=== PATIENT | female | born 1945 | race Hispanic/Latino ===

== ENCOUNTER 2020-08-04 10:00 | Outpatient (CLI) | payer MEDICARE | END 2020-08-04 10:01 | disposition home or self-care (01) | LOC: CSHULT 10:00 | PROVIDERS: ATTEND Physician Assistant Medical | DX: K74.60 Unspecified cirrhosis of liver (principal); R93.2 Abnormal findings on diagnostic imaging of liver and biliary tract | CPT/HCPCS: 76705 ==

== ENCOUNTER 2020-08-30 16:41 | Outpatient (CLI) | payer MEDICARE, MEDICAID | END 2020-08-30 16:42 | disposition home or self-care (01) | LOC: CSHWCC 16:41 | PROVIDERS: ATTEND Nurse Practitioner Family | DX: E11.621 Type 2 diabetes mellitus with foot ulcer (principal); L97.419 Non-pressure chronic ulcer of right heel and midfoot with unspecified severity; E03.9 Hypothyroidism, unspecified; E78.2 Mixed hyperlipidemia; I10 Essential (primary) hypertension; I70.203 Unspecified atherosclerosis of native arteries of extremities, bilateral legs; I87.2 Venous insufficiency (chronic) (peripheral); R60.0 Localized edema | CPT/HCPCS: 97139; G0463; 99213 ==

== ENCOUNTER 2021-07-27 08:52 | Outpatient (CLI) | payer MEDICARE, MEDICAID | END 2021-07-27 08:53 | disposition home or self-care (01) | LOC: CSHWCC 08:52 | PROVIDERS: ATTEND Nurse Practitioner Family | DX: L97.412 Non-pressure chronic ulcer of right heel and midfoot with fat layer exposed (principal); I70.234 Atherosclerosis of native arteries of right leg with ulceration of heel and midfoot; R60.0 Localized edema | CPT/HCPCS: 97139; G0463; 99213 ==

== ENCOUNTER 2021-08-10 09:52 | Outpatient (CLI) | payer MEDICARE, MEDICAID | END 2021-08-10 09:53 | disposition home or self-care (01) | LOC: CSHWCC 09:52 | PROVIDERS: ATTEND Nurse Practitioner Family | DX: I70.234 Atherosclerosis of native arteries of right leg with ulceration of heel and midfoot (principal); L97.412 Non-pressure chronic ulcer of right heel and midfoot with fat layer exposed; R60.0 Localized edema ==